=== PATIENT | female | born 1955 | race Caucasian/White ===

== ENCOUNTER 2017-12-14 07:30 | Inpatient (IN) | payer OTHER ==
[~2017-12-14] VITALS: Ht 256.5 cm; Wt 83.5 kg
[2017-12-14] MEDS ORDERED: DIGOX PO (09:06)
[2017-12-14] MEDS ORDERED: [UNRECOGNIZED DRUG - OTHER] PO (09:07)
[2017-12-14] MEDS ORDERED: ALBUTEROL0.63 MG/3 IH (09:08)
[2017-12-14] MEDS ORDERED: MINUS WEIGHT P1 EACH PO (09:08)
[2017-12-14] MEDS ORDERED: ALBUTEROL2.5 MG/3 M IH (09:09)
[2017-12-20] MEDS ORDERED: LANOXIN62.5 MCG (12:00)
[2017-12-20] MEDS ORDERED: ANASTROZOLE1 MG PO (12:03)
[2017-12-22] MEDS ORDERED: ELIQUIS2.5 MG PO (17:35)
[2017-12-22] MEDS ORDERED: DUI500 PO (17:35)
[2017-12-22] MEDS ORDERED: PERCOCET 5-3251 EACH PO (17:35)
== END 2017-12-22 18:56 | DRG 470 ==
LOC: SURG 12-20 05:30 → O/R 12-20 05:30 → SURH 12-20 07:30 → SURG 12-20 13:59
PROVIDERS: Orthopaedic Surgery
PROC: 0MNP0ZZ Release Left Knee Bursa and Ligament, Open Approach (ICD-10-PCS; 2017-12-20)
PROC: 0SRD0J9 Replacement of Left Knee Joint with Synthetic Substitute, Cemented, Open Approach (ICD-10-PCS; principal; 2017-12-20 10:15)
DX: M17.12 Unilateral primary osteoarthritis, left knee (principal); D62 Acute posthemorrhagic anemia; M81.0 Age-related osteoporosis without current pathological fracture; I10 Essential (primary) hypertension; J45.998 Other asthma; E66.9 Obesity, unspecified; Z96.651 Presence of right artificial knee joint

== ENCOUNTER 2017-12-14 15:12 | Outpatient (CLI) | payer OTHER ==
[~2017-12-14 15:12] MED LIST: ALBUTEROL0.63 MG/3 IH; ALBUTEROL2.5 MG/3 M IH; DIGOX PO; MINUS WEIGHT P1 EACH PO; [UNRECOGNIZED DRUG - OTHER] PO
== END 2017-12-14 18:25 | disposition home or self-care (01) ==
LOC: LAB 15:12
DX: N39.0 Urinary tract infection, site not specified (principal)